=== PATIENT | female | born 1930 | race Caucasian/White ===

== ENCOUNTER 2019-08-24 04:49 | Inpatient (IN) | payer MEDICARE, MEDICAID ==
[~2019-08-24] VITALS: Ht 157.5 cm; Wt 45.5 kg
[~2019-08-24 04:49] MED LIST: ALEN70TA6 PO; AMLO10TA4 PO; ASPI-1265 PO; GABA-530 PO; HYDR-3972 PO; LIDO700A5 TOP; OMEP20CA15 PO; POTA20TA10 PO
[2019-08-24] MEDS ORDERED: SIMV10TA98 PO (05:02)
[2019-08-24] MEDS ORDERED: normal saline 1000ML IV soln IVB ONE (05:05)
[2019-08-24] MEDS ORDERED: tranexamic acid 100mg/ml inj. IV ONE (05:10)
[2019-08-24 05:12] LABS: BASOPHILS % (AUTO) 0.6 % (0-1); EOSINOPHILS # (AUTO) 0.1 X10'3 (0-0.9); HEMATOCRIT 39.1 % (35.0-45.0); HEMOGLOBIN 12.6 g/dl (12.0-16.0); LYMPHOCYTES # (AUTO) 2.3 X10'3 (1.1-4.8); LYMPHOCYTES % (AUTO) 34.7 % (21-51); MEAN CORPUSCULAR HEMOGLOBIN 27.9 PG (27.0-31.0); MEAN CORPUSCULAR HGB CONC 32.1 g/dL (33.0-36.5); MEAN CORPUSCULAR VOLUME 86.8 FL (78-98); MEAN PLATELET VOLUME 7.8 FL (7.4-10.4); MONOCYTES # (AUTO) 0.6 X10'3 (0-0.9); MONOCYTES % (AUTO) 8.4 % (2-12); NEUTROPHILS # (AUTO) 3.7 X10'3 (1.8-7.7); NEUTROPHILS % (AUTO) 55.3 % (42-75); PLATELET COUNT 222 X10'3 (140-440); RED BLOOD COUNT 4.51 X10'6 (4.20-5.60); RED CELL DISTRIBUTION WIDTH 14.3 % (11.5-14.5); WHITE BLOOD COUNT 6.7 X10'3 (4.5-11.0)
[2019-08-24] MEDS ORDERED: TRANEXAMIC ACID 1 GM IN NACL,ISO-OS 100 ML IV ONE (05:15)
--- NOTE | 2019-08-24 05:30 | NUR ---
Pt's son (Alaina) #: [id number]
[2019-08-24 05:31] LABS: ALANINE AMINOTRANSFERASE 23 U/L (12-78); ALBUMIN 4.1 G/DL (3.4-5.0); ALKALINE PHOSPHATASE 107 IU/L (46-116); ANION GAP 9 (8-16); ASPARTATE AMINO TRANSFERASE 17 U/L (10-37); BILIRUBIN,TOTAL 0.5 MG/DL (0.1-1.0); BLOOD UREA NITROGEN 13 MG/DL (7-18); CALCIUM 9.4 MG/DL (8.5-10.1); CHLORIDE 107 MMOL/L (99-107); CREATININE 0.81 MG/DL (0.40-0.90); GLUCOSE 105 MG/DL (70-104); LIPASE 92 U/L (73-393); POTASSIUM 3.5 MMOL/L (3.5-5.1); SODIUM 144 MMOL/L (135-145); TOTAL CARBON DIOXIDE 28.5 MMOL/L (24-32); TOTAL PROTEIN 8.1 G/DL (6.4-8.2); eGFR 67 ML/MIN
[2019-08-24 05:39] LABS: CLARITY,URINE CLEAR (Clear); COLOR,URINE YELLOW (Yellow); GLUCOSE, URINE NEGATIVE (Neg); KETONES,URINE NEGATIVE (Neg); LEUKOCYTE ESTERASE ,URINE NEGATIVE (Neg); NITRITES, URINE NEGATIVE (Neg); OCCULT BLOOD,URINE MODERATE (Neg); PH,URINE 7.5 (4.8-8.0); PROTEIN,URINE NEGATIVE (Neg); UROBILINOGEN,URINE 0.2 E.U/dL (0.2-1.0)
[2019-08-24 05:44] LABS: UA COLLECTION TYPE CLN CATCH MIDSTREAM
[2019-08-24 05:45] LABS: BACTERIA,URINE NONE SEEN /HPF (Neg); RBC,URINE 0-2 /HPF (0-2); SQUAMOUS EPITHELIAL CELL,UR NONE SEEN /LPF (FEW); WBC,URINE NONE SEEN /HPF (0-4)
--- NOTE | 2019-08-24 06:15 | NUR ---
Pt. assisted to the bathroom. Upon exiting, pt. states that she has blood with her stool again. made aware. Hospitalist to be consulted re this.
--- NOTE | 2019-08-24 06:45 | NUR ---
UPDATED PT ON ADMIT PROCESS, PT UP AMBULATING TO BR WITH HER CANE.
[2019-08-24] MEDS ORDERED: non-formulary drug (Omeprazole 1 CAP) PO SCH (08:00)
[2019-08-24] MEDS ORDERED: magnesium hydroxide 30ml (MOM) UD suspension PO PRN (08:05)
[2019-08-24] MEDS ORDERED: mag hydrox/Alum hydrox/simeth 30ml oral suspension PO PRN (08:05)
[2019-08-24] MEDS ORDERED: morphine 2 MG/ML inj. syringe IV PRN ×2 (08:05)
[2019-08-24] MEDS ORDERED: acetaminophen 325mg tablet PO PRN ×2 (08:05)
[2019-08-24] MEDS ORDERED: ondansetron/PF 4mg/2ml inj IV PRN (08:05)
[2019-08-24 08:30] LABS: PARTIAL THROMBOPLASTIN TIME 29 SECONDS (22-32)
--- NOTE | 2019-08-24 08:30 | NUR ---
Report received from ED RNLoraine.
[2019-08-24 09:00] VITALS: BP 149/68
[2019-08-24] MEDS: dextrose 5%-1/2 normal saline 1,000 ML IV SCH ×3 (09:09→19:58)
[2019-08-24] MEDS: gabapentin 100mg capsule PO SCH ×2 (09:09→19:35)
[2019-08-24] MEDS: HYDROcodone/acetaminophen 5mg/325mg tablet PO PRN ×2 (10:56→17:26)
[2019-08-24 11:14] LABS: BASOPHILS % (AUTO) 0.7 % (0-1); EOSINOPHILS % (AUTO) 0.3 % (0-6); HEMATOCRIT 34.9 % (35.0-45.0); HEMOGLOBIN 11.3 g/dl (12.0-16.0); LYMPHOCYTES # (AUTO) 1.6 X10'3 (1.1-4.8); LYMPHOCYTES % (AUTO) 22.8 % (21-51); MEAN CORPUSCULAR HEMOGLOBIN 28.2 PG (27.0-31.0); MEAN CORPUSCULAR HGB CONC 32.4 g/dL (33.0-36.5); MEAN CORPUSCULAR VOLUME 87.1 FL (78-98); MONOCYTES # (AUTO) 0.4 X10'3 (0-0.9); MONOCYTES % (AUTO) 5.3 % (2-12); NEUTROPHILS % (AUTO) 70.9 % (42-75); PLATELET COUNT 209 X10'3 (140-440); RED BLOOD COUNT 4.01 X10'6 (4.20-5.60); RED CELL DISTRIBUTION WIDTH 14.3 % (11.5-14.5)
[2019-08-24 12:00] VITALS: BP 135/61
[2019-08-24] MEDS ORDERED: ANTI1CAP2 PO (12:55)
[2019-08-24] MEDS ORDERED: MULT-85 PO (12:55)
[2019-08-24] MEDS ORDERED: OMEG-133 PO (12:55)
[2019-08-24] MEDS ORDERED: nitroGLYCERIN 0.4mg SUBLingual tab SL PRN (16:25)
--- NOTE | 2019-08-24 18:10 | NUR ---
Patient in room [facility] 354. I have received report from SAMEER Noriega and had the opportunity to ask questions and assume patient care.
--- NOTE | 2019-08-24 18:30 | NUR ---
Problems reprioritized. Patient report given, questions answered & plan of care reviewed with SAMEER Lang.
[2019-08-24 19:27] LABS: BASOPHILS % (AUTO) 0.5 % (0-1); EOSINOPHILS % (AUTO) 0.3 % (0-6); HEMATOCRIT 30.7 % (35.0-45.0); HEMOGLOBIN 9.9 g/dl (12.0-16.0); LYMPHOCYTES # (AUTO) 1.3 X10'3 (1.1-4.8); LYMPHOCYTES % (AUTO) 21.3 % (21-51); MEAN CORPUSCULAR HEMOGLOBIN 28.5 PG (27.0-31.0); MEAN CORPUSCULAR HGB CONC 32.3 g/dL (33.0-36.5); MEAN PLATELET VOLUME 8.1 FL (7.4-10.4); MONOCYTES # (AUTO) 0.2 X10'3 (0-0.9); MONOCYTES % (AUTO) 3.7 % (2-12); NEUTROPHILS # (AUTO) 4.5 X10'3 (1.8-7.7); NEUTROPHILS % (AUTO) 74.2 % (42-75); PLATELET COUNT 186 X10'3 (140-440); RED BLOOD COUNT 3.48 X10'6 (4.20-5.60); RED CELL DISTRIBUTION WIDTH 14.3 % (11.5-14.5); WHITE BLOOD COUNT 6.1 X10'3 (4.5-11.0)
[2019-08-24 20:00] VITALS: BP_SYST 123; BP_SYST 131; BP_SYST 136; BP_DIAS 64; BP_DIAS 68; BP_DIAS 77
[2019-08-24 20:16] VITALS: BP 136/64
[2019-08-24 23:56] VITALS: BP 112/53
--- NOTE | 2019-08-25 06:36 | NUR ---
Problems reprioritized. Patient report given, questions answered & plan of care reviewed with SAMEER Viramontes.
[2019-08-25 06:37] LABS: BASOPHILS % (AUTO) 0.6 % (0-1); EOSINOPHILS % (AUTO) 0.6 % (0-6); HEMATOCRIT 31.6 % (35.0-45.0); HEMOGLOBIN 10.2 g/dl (12.0-16.0); LYMPHOCYTES # (AUTO) 1.9 X10'3 (1.1-4.8); LYMPHOCYTES % (AUTO) 31.5 % (21-51); MEAN CORPUSCULAR HEMOGLOBIN 28.1 PG (27.0-31.0); MEAN CORPUSCULAR HGB CONC 32.3 g/dL (33.0-36.5); MEAN CORPUSCULAR VOLUME 86.8 FL (78-98); MEAN PLATELET VOLUME 7.8 FL (7.4-10.4); MONOCYTES # (AUTO) 0.4 X10'3 (0-0.9); MONOCYTES % (AUTO) 7.4 % (2-12); NEUTROPHILS # (AUTO) 3.7 X10'3 (1.8-7.7); NEUTROPHILS % (AUTO) 59.9 % (42-75); PLATELET COUNT 203 X10'3 (140-440); RED BLOOD COUNT 3.65 X10'6 (4.20-5.60); RED CELL DISTRIBUTION WIDTH 14.4 % (11.5-14.5); WHITE BLOOD COUNT 6.1 X10'3 (4.5-11.0)
[2019-08-25 06:42] LABS: ALBUMIN 3.6 G/DL (3.4-5.0); ANION GAP 8 (8-16); BLOOD UREA NITROGEN 3 MG/DL (7-18); BUN/CREATININE RATIO 3.7 (6.6-38.0); CALCIUM 8.9 MG/DL (8.5-10.1); CHLORIDE 109 MMOL/L (99-107); CREATININE 0.82 MG/DL (0.40-0.90); GLUCOSE 120 MG/DL (70-104); POTASSIUM 3.1 MMOL/L (3.5-5.1); SODIUM 144 MMOL/L (135-145); TOTAL CARBON DIOXIDE 26.6 MMOL/L (24-32); eGFR 66 ML/MIN
--- NOTE | 2019-08-25 07:04 | NUR ---
Patient in room [facility] 354. I have received report from Rickey ESTRELLA and had the opportunity to ask questions and assume patient care.
[2019-08-25 07:24] VITALS: BP 118/73
[2019-08-25] MEDS: HYDROcodone/acetaminophen 5mg/325mg tablet PO PRN ×2 (07:53→17:59)
[2019-08-25] MEDS: gabapentin 100mg capsule PO SCH ×2 (07:55→19:38)
[2019-08-25] MEDS: pantoprazole 40mg Tablet.DR PO SCH (07:57)
[2019-08-25] MEDS: atorvastatin 10mg tablet PO SCH (08:03)
[2019-08-25] MEDS ORDERED: potassium Cl 20 mEq SR tablet PO ONE (09:00)
[2019-08-25 11:21] VITALS: BP_SYST 110; BP_SYST 122; BP_SYST 140; BP_DIAS 63; BP_DIAS 65; BP_DIAS 71
[2019-08-25 11:41] LABS: BASOPHILS % (AUTO) 0.5 % (0-1); EOSINOPHILS % (AUTO) 0.1 % (0-6); HEMOGLOBIN 10.3 g/dl (12.0-16.0); LYMPHOCYTES # (AUTO) 1.6 X10'3 (1.1-4.8); LYMPHOCYTES % (AUTO) 23.5 % (21-51); MEAN CORPUSCULAR HEMOGLOBIN 28.2 PG (27.0-31.0); MEAN CORPUSCULAR HGB CONC 32.4 g/dL (33.0-36.5); MEAN CORPUSCULAR VOLUME 87.3 FL (78-98); MONOCYTES # (AUTO) 0.5 X10'3 (0-0.9); MONOCYTES % (AUTO) 7.3 % (2-12); NEUTROPHILS # (AUTO) 4.7 X10'3 (1.8-7.7); NEUTROPHILS % (AUTO) 68.6 % (42-75); PLATELET COUNT 197 X10'3 (140-440); RED BLOOD COUNT 3.66 X10'6 (4.20-5.60); RED CELL DISTRIBUTION WIDTH 14.4 % (11.5-14.5); WHITE BLOOD COUNT 6.8 X10'3 (4.5-11.0)
[2019-08-25 12:27] VITALS: BP 121/65
--- NOTE | 2019-08-25 15:13 | NUR ---
paged regarding addressing med rec. Awaiting call back.
--- NOTE | 2019-08-25 17:24 | NUR ---
paged regarding positive orthostatic and HR in 110s. Awaiting call back.
--- NOTE | 2019-08-25 18:31 | NUR ---
Problems reprioritized. Patient report given, questions answered & plan of care reviewed with Rickey ESTRELLA.
--- NOTE | 2019-08-25 18:52 | NUR ---
I have received report from SAMEER Viramontes and had the opportunity to ask questions and assume patient care.
[2019-08-25 19:19] LABS: BASOPHILS % (AUTO) 0.5 % (0-1); EOSINOPHILS % (AUTO) 0.4 % (0-6); HEMATOCRIT 31.3 % (35.0-45.0); HEMOGLOBIN 10.2 g/dl (12.0-16.0); LYMPHOCYTES % (AUTO) 28.3 % (21-51); MEAN CORPUSCULAR HEMOGLOBIN 28.3 PG (27.0-31.0); MEAN CORPUSCULAR HGB CONC 32.6 g/dL (33.0-36.5); MEAN PLATELET VOLUME 8.2 FL (7.4-10.4); MONOCYTES # (AUTO) 0.5 X10'3 (0-0.9); MONOCYTES % (AUTO) 7.4 % (2-12); NEUTROPHILS # (AUTO) 4.5 X10'3 (1.8-7.7); NEUTROPHILS % (AUTO) 63.4 % (42-75); PLATELET COUNT 219 X10'3 (140-440); RED BLOOD COUNT 3.59 X10'6 (4.20-5.60); RED CELL DISTRIBUTION WIDTH 14.2 % (11.5-14.5); WHITE BLOOD COUNT 7.1 X10'3 (4.5-11.0)
[2019-08-25 20:00] VITALS: BP_SYST 140; BP_SYST 142; BP_SYST 146; BP_DIAS 63; BP_DIAS 76
[2019-08-25] MEDS: LIDOcaine 5% patch TP SCH (20:41)
[2019-08-26 05:54] LABS: BASOPHILS % (AUTO) 0.5 % (0-1); EOSINOPHILS # (AUTO) 0.1 X10'3 (0-0.9); EOSINOPHILS % (AUTO) 0.9 % (0-6); HEMATOCRIT 26.6 % (35.0-45.0); HEMOGLOBIN 8.7 g/dl (12.0-16.0); LYMPHOCYTES # (AUTO) 2.2 X10'3 (1.1-4.8); LYMPHOCYTES % (AUTO) 36.4 % (21-51); MEAN CORPUSCULAR HEMOGLOBIN 28.5 PG (27.0-31.0); MEAN CORPUSCULAR HGB CONC 32.5 g/dL (33.0-36.5); MEAN CORPUSCULAR VOLUME 87.6 FL (78-98); MONOCYTES # (AUTO) 0.6 X10'3 (0-0.9); MONOCYTES % (AUTO) 10.7 % (2-12); NEUTROPHILS # (AUTO) 3.1 X10'3 (1.8-7.7); NEUTROPHILS % (AUTO) 51.5 % (42-75); PLATELET COUNT 175 X10'3 (140-440); RED BLOOD COUNT 3.04 X10'6 (4.20-5.60); RED CELL DISTRIBUTION WIDTH 14.4 % (11.5-14.5)
[2019-08-26 06:01] LABS: ALBUMIN 3.1 G/DL (3.4-5.0); ANION GAP 6 (8-16); BLOOD UREA NITROGEN 9 MG/DL (7-18); CALCIUM 8.5 MG/DL (8.5-10.1); CHLORIDE 110 MMOL/L (99-107); GLUCOSE 99 MG/DL (70-104); POTASSIUM 3.1 MMOL/L (3.5-5.1); SODIUM 145 MMOL/L (135-145); TOTAL CARBON DIOXIDE 28.9 MMOL/L (24-32); eGFR 59 ML/MIN
--- NOTE | 2019-08-26 06:30 | NUR ---
Problems reprioritized. Patient report given, questions answered & plan of care reviewed with SAMEER Viramontes.
[2019-08-26 06:31] VITALS: BP 111/55
--- NOTE | 2019-08-26 06:58 | NUR ---
Patient in room [facility] 354. I have received report from Rickey ESTRELLA and had the opportunity to ask questions and assume patient care.
[2019-08-26 07:31] VITALS: BP 127/69
[2019-08-26] MEDS: gabapentin 100mg capsule PO SCH ×2 (08:02→19:28)
[2019-08-26] MEDS: pantoprazole 40mg Tablet.DR PO SCH (08:02)
[2019-08-26] MEDS: atorvastatin 10mg tablet PO SCH (08:02)
[2019-08-26] MEDS: HYDROcodone/acetaminophen 5mg/325mg tablet PO PRN ×2 (08:07→21:42)
[2019-08-26] MEDS ORDERED: potassium Cl 20 mEq SR tablet PO ONE (08:55)
[2019-08-26 11:41] VITALS: BP 102/48
[2019-08-26 11:48] VITALS: BP_SYST 103; BP_SYST 106; BP_SYST 107; BP_DIAS 55; BP_DIAS 57; BP_DIAS 63
[2019-08-26 12:24] LABS: BASOPHILS % (AUTO) 0.3 % (0-1); EOSINOPHILS % (AUTO) 0.2 % (0-6); HEMATOCRIT 26.8 % (35.0-45.0); HEMOGLOBIN 8.6 g/dl (12.0-16.0); LYMPHOCYTES # (AUTO) 1.8 X10'3 (1.1-4.8); LYMPHOCYTES % (AUTO) 25.1 % (21-51); MEAN CORPUSCULAR HGB CONC 32.3 g/dL (33.0-36.5); MEAN CORPUSCULAR VOLUME 86.7 FL (78-98); MEAN PLATELET VOLUME 8.2 FL (7.4-10.4); MONOCYTES # (AUTO) 0.5 X10'3 (0-0.9); MONOCYTES % (AUTO) 6.6 % (2-12); NEUTROPHILS # (AUTO) 4.9 X10'3 (1.8-7.7); NEUTROPHILS % (AUTO) 67.8 % (42-75); PLATELET COUNT 180 X10'3 (140-440); RED BLOOD COUNT 3.09 X10'6 (4.20-5.60); RED CELL DISTRIBUTION WIDTH 14.3 % (11.5-14.5); WHITE BLOOD COUNT 7.2 X10'3 (4.5-11.0)
--- NOTE | 2019-08-26 12:40 | NUR ---
Dr. Peacock paged regarding current H&H of 8.6.8. Awaiting callback.
--- NOTE | 2019-08-26 18:24 | NUR ---
Problems reprioritized. Patient report given, questions answered & plan of care reviewed with Rickey ESTRELLA.
--- NOTE | 2019-08-26 19:09 | NUR ---
Patient in room [facility] 354. I have received report from SAMEER Viramontes and had the opportunity to ask questions and assume patient care.
[2019-08-26 19:15] LABS: BASOPHILS % (AUTO) 0.5 % (0-1); EOSINOPHILS # (AUTO) 0.1 X10'3 (0-0.9); EOSINOPHILS % (AUTO) 0.8 % (0-6); HEMATOCRIT 28.2 % (35.0-45.0); HEMOGLOBIN 9.1 g/dl (12.0-16.0); LYMPHOCYTES # (AUTO) 2.6 X10'3 (1.1-4.8); LYMPHOCYTES % (AUTO) 35.5 % (21-51); MEAN CORPUSCULAR HEMOGLOBIN 28.5 PG (27.0-31.0); MEAN CORPUSCULAR HGB CONC 32.4 g/dL (33.0-36.5); MEAN CORPUSCULAR VOLUME 87.9 FL (78-98); MEAN PLATELET VOLUME 8.2 FL (7.4-10.4); MONOCYTES # (AUTO) 0.6 X10'3 (0-0.9); MONOCYTES % (AUTO) 7.6 % (2-12); NEUTROPHILS # (AUTO) 4.1 X10'3 (1.8-7.7); NEUTROPHILS % (AUTO) 55.6 % (42-75); PLATELET COUNT 205 X10'3 (140-440); RED BLOOD COUNT 3.21 X10'6 (4.20-5.60); RED CELL DISTRIBUTION WIDTH 14.5 % (11.5-14.5); WHITE BLOOD COUNT 7.3 X10'3 (4.5-11.0)
[2019-08-26] MEDS: LIDOcaine 5% patch TP SCH (19:28)
[2019-08-26 20:00] VITALS: BP_SYST 133; BP_SYST 135; BP_SYST 147; BP_DIAS 67; BP_DIAS 71
[2019-08-27] VITALS: BP 135/71
[2019-08-27 06:09] LABS: BASOPHILS % (AUTO) 0.4 % (0-1); EOSINOPHILS # (AUTO) 0.1 X10'3 (0-0.9); EOSINOPHILS % (AUTO) 1.1 % (0-6); HEMATOCRIT 23.8 % (35.0-45.0); HEMOGLOBIN 7.9 g/dl (12.0-16.0); LYMPHOCYTES # (AUTO) 2.8 X10'3 (1.1-4.8); LYMPHOCYTES % (AUTO) 42.7 % (21-51); MEAN CORPUSCULAR HEMOGLOBIN 28.5 PG (27.0-31.0); MEAN CORPUSCULAR HGB CONC 33.1 g/dL (33.0-36.5); MEAN CORPUSCULAR VOLUME 86.1 FL (78-98); MEAN PLATELET VOLUME 8.3 FL (7.4-10.4); MONOCYTES # (AUTO) 0.5 X10'3 (0-0.9); MONOCYTES % (AUTO) 8.2 % (2-12); NEUTROPHILS # (AUTO) 3.1 X10'3 (1.8-7.7); NEUTROPHILS % (AUTO) 47.6 % (42-75); PLATELET COUNT 180 X10'3 (140-440); RED BLOOD COUNT 2.76 X10'6 (4.20-5.60); RED CELL DISTRIBUTION WIDTH 13.9 % (11.5-14.5); WHITE BLOOD COUNT 6.5 X10'3 (4.5-11.0)
[2019-08-27 06:17] LABS: ALBUMIN 2.9 G/DL (3.4-5.0); ANION GAP 9 (8-16); BLOOD UREA NITROGEN 11 MG/DL (7-18); BUN/CREATININE RATIO 13.6 (6.6-38.0); CALCIUM 8.8 MG/DL (8.5-10.1); CHLORIDE 108 MMOL/L (99-107); CREATININE 0.81 MG/DL (0.40-0.90); GLUCOSE 89 MG/DL (70-104); POTASSIUM 3.2 MMOL/L (3.5-5.1); SODIUM 143 MMOL/L (135-145); TOTAL CARBON DIOXIDE 26.1 MMOL/L (24-32); eGFR 67 ML/MIN
--- NOTE | 2019-08-27 06:34 | NUR ---
Problems reprioritized. Patient report given, questions answered & plan of care reviewed with SAMEER Alexander.
--- NOTE | 2019-08-27 06:35 | NUR ---
Patient in room [facility] 354. I have received report from SAMEER WALLACE and had the opportunity to ask questions and assume patient care.
[2019-08-27 07:00] VITALS: BP 128/62
[2019-08-27] MEDS: pantoprazole 40mg Tablet.DR PO SCH (07:42)
[2019-08-27] MEDS: atorvastatin 10mg tablet PO SCH (07:42)
[2019-08-27] MEDS: gabapentin 100mg capsule PO SCH (07:42)
[2019-08-27] MEDS: HYDROcodone/acetaminophen 5mg/325mg tablet PO PRN ×2 (07:43→13:02)
[2019-08-27 11:00] VITALS: BP 122/57
[2019-08-27 12:05] LABS: BASOPHILS % (AUTO) 0.4 % (0-1); EOSINOPHILS % (AUTO) 0.4 % (0-6); HEMATOCRIT 26.4 % (35.0-45.0); HEMOGLOBIN 8.7 g/dl (12.0-16.0); LYMPHOCYTES # (AUTO) 2.1 X10'3 (1.1-4.8); LYMPHOCYTES % (AUTO) 30.9 % (21-51); MEAN CORPUSCULAR HEMOGLOBIN 28.5 PG (27.0-31.0); MEAN CORPUSCULAR HGB CONC 32.8 g/dL (33.0-36.5); MEAN CORPUSCULAR VOLUME 86.8 FL (78-98); MEAN PLATELET VOLUME 8.3 FL (7.4-10.4); MONOCYTES # (AUTO) 0.5 X10'3 (0-0.9); NEUTROPHILS # (AUTO) 4.2 X10'3 (1.8-7.7); NEUTROPHILS % (AUTO) 61.3 % (42-75); PLATELET COUNT 209 X10'3 (140-440); RED BLOOD COUNT 3.04 X10'6 (4.20-5.60); RED CELL DISTRIBUTION WIDTH 14.6 % (11.5-14.5); WHITE BLOOD COUNT 6.8 X10'3 (4.5-11.0)
--- NOTE | 2019-08-27 16:15 | NUR ---
PATIENT APPROPRIATE AND STABLE FOR DISCHARGE, IV TAKEN OUT, EDUCATION GIVEN, ALL BELONGINGS SENT WITH PATIENT, TAKEN TO LOBBY IN WHEEL CHAIR TO AN AWAITING CAR WHERE WILL TAKE PATIENT HOME
== END 2019-08-27 16:15 | disposition home or self-care (01) | DRG 378 ==
LOC: ER 04:49 → ED HOLD 08:01 → SUR 3N 08:56
PROVIDERS: ADMIT Internal Medicine; ATTEND Internal Medicine
DX: K57.31 Diverticulosis of large intestine without perforation or abscess with bleeding (principal); D62 Acute posthemorrhagic anemia; E87.6 Hypokalemia; E78.5 Hyperlipidemia, unspecified; F03.90 Unspecified dementia, unspecified severity, without behavioral disturbance, psychotic disturbance, mood disturbance, and anxiety; I10 Essential (primary) hypertension; R03.0 Elevated blood-pressure reading, without diagnosis of hypertension; M54.9 Dorsalgia, unspecified; Z87.11 Personal history of peptic ulcer disease; Z88.0 Allergy status to penicillin; Z88.1 Allergy status to other antibiotic agents; Z79.899 Other long term (current) drug therapy; Z88.8 Allergy status to other drugs, medicaments and biological substances
CPT/HCPCS: 36415; 74176; 80048; 80053; 81001; 83690; 83880; 85025; 85610; 85730; 86885; 86900; 86901; 87081; 93005; 96365; 99285; G0378; J7030

== ENCOUNTER 2020-01-07 13:11 | Emergency (ER) | payer MEDICARE, OTHER ==
[~2020-01-07] VITALS: Ht 157.5 cm; Wt 46.3 kg
[~2020-01-07 13:11] MED LIST changes: -ALEN70TA6 PO; +ALEN70TA69 PO; +ANTI1CAP2 PO; -ASPI-1265 PO; +MULT-85 PO; +OMEG-133 PO; +SIMV10TA98 PO
[2020-01-07] MEDS ORDERED: potassium Cl 20 mEq SR tablet PO STA ×2 (14:51→16:44)
[2020-01-07] MEDS ORDERED: normal saline 1000ML IV soln IVB ONE (14:55)
[2020-01-07 15:27] LABS: BASOPHILS % (AUTO) 0.5 % (0-1); EOSINOPHILS # (AUTO) 0.1 X10'3 (0-0.9); EOSINOPHILS % (AUTO) 1.3 % (0-6); HEMATOCRIT 37.3 % (35.0-45.0); HEMOGLOBIN 12.3 g/dl (12.0-16.0); LYMPHOCYTES # (AUTO) 2.1 X10'3 (1.1-4.8); LYMPHOCYTES % (AUTO) 35.9 % (21-51); MEAN CORPUSCULAR HEMOGLOBIN 28.2 PG (27.0-31.0); MEAN CORPUSCULAR VOLUME 85.5 FL (78-98); MEAN PLATELET VOLUME 8.2 FL (7.4-10.4); MONOCYTES # (AUTO) 0.6 X10'3 (0-0.9); MONOCYTES % (AUTO) 10.8 % (2-12); NEUTROPHILS % (AUTO) 51.5 % (42-75); PLATELET COUNT 199 X10'3 (140-440); RED BLOOD COUNT 4.37 X10'6 (4.20-5.60); RED CELL DISTRIBUTION WIDTH 15.3 % (11.5-14.5); WHITE BLOOD COUNT 5.9 X10'3 (4.5-11.0)
[2020-01-07 15:49] LABS: ALANINE AMINOTRANSFERASE 20 U/L (12-78); ALKALINE PHOSPHATASE 108 IU/L (46-116); ANION GAP 11 (8-16); ASPARTATE AMINO TRANSFERASE 18 U/L (10-37); BILIRUBIN,TOTAL 0.4 MG/DL (0.1-1.0); BLOOD UREA NITROGEN 19 MG/DL (7-18); BUN/CREATININE RATIO 23.2 (6.6-38.0); CALCIUM 9.5 MG/DL (8.5-10.1); CHLORIDE 102 MMOL/L (99-107); CREATININE 0.82 MG/DL (0.40-0.90); GLUCOSE 113 MG/DL (70-104); SODIUM 142 MMOL/L (135-145); TOTAL CARBON DIOXIDE 29.1 MMOL/L (24-32); eGFR 66 ML/MIN
[2020-01-07 17:03] VITALS: BP 128/94
== END 2020-01-07 17:04 | disposition home or self-care (01) ==
LOC: ER 13:11
DX: R53.1 Weakness (principal); F03.90 Unspecified dementia, unspecified severity, without behavioral disturbance, psychotic disturbance, mood disturbance, and anxiety; E87.6 Hypokalemia; R26.89 Other abnormalities of gait and mobility; I10 Essential (primary) hypertension; Z98.890 Other specified postprocedural states; Z88.0 Allergy status to penicillin; Z88.5 Allergy status to narcotic agent; Z88.8 Allergy status to other drugs, medicaments and biological substances; Z79.899 Other long term (current) drug therapy
CPT/HCPCS: 36415; 70450; 80053; 84484; 85025; 93005; 99285

== ENCOUNTER 2020-04-08 05:54 | Inpatient (IN) | payer MEDICARE, MEDICAID ==
[~2020-04-08] VITALS: Ht 154.9 cm; Wt 44.5 kg
[~2020-04-08 05:54] MED LIST changes: -ALEN70TA69 PO; +ALEN70TA81 PO
[2020-04-08] MEDS ORDERED: pantoprazole 40 MG vial IV ONE (06:20)
[2020-04-08] MEDS ORDERED: famotidine/PF 10 mg/ml inj IV ONE (06:20)
[2020-04-08 06:29] LABS: BASOPHILS % (AUTO) 0.7 % (0-1); EOSINOPHILS % (AUTO) 0.8 % (0-6); HEMATOCRIT 27.4 % (35.0-45.0); HEMOGLOBIN 9.1 g/dl (12.0-16.0); LYMPHOCYTES # (AUTO) 1.4 X10'3 (1.1-4.8); LYMPHOCYTES % (AUTO) 28.1 % (21-51); MEAN CORPUSCULAR HEMOGLOBIN 29.8 PG (27.0-31.0); MEAN CORPUSCULAR VOLUME 90.1 FL (78-98); MEAN PLATELET VOLUME 7.9 FL (7.4-10.4); MONOCYTES # (AUTO) 0.5 X10'3 (0-0.9); MONOCYTES % (AUTO) 8.9 % (2-12); NEUTROPHILS # (AUTO) 3.1 X10'3 (1.8-7.7); NEUTROPHILS % (AUTO) 61.5 % (42-75); PLATELET COUNT 252 X10'3 (140-440); RED BLOOD COUNT 3.04 X10'6 (4.20-5.60); RED CELL DISTRIBUTION WIDTH 13.7 % (11.5-14.5); WHITE BLOOD COUNT 5.1 X10'3 (4.5-11.0)
[2020-04-08 06:39] LABS: PARTIAL THROMBOPLASTIN TIME 22 SECONDS (22-32)
[2020-04-08 06:46] LABS: ALANINE AMINOTRANSFERASE 19 U/L (12-78); ALBUMIN/GLOBULIN RATIO 1.1 (1.1-1.5); ALKALINE PHOSPHATASE 69 IU/L (46-116); ANION GAP 9 (8-16); ASPARTATE AMINO TRANSFERASE 22 U/L (10-37); BILIRUBIN,TOTAL 0.3 MG/DL (0.1-1.0); BLOOD UREA NITROGEN 18 MG/DL (7-18); BUN/CREATININE RATIO 19.8 (6.6-38.0); CALCIUM 9.1 MG/DL (8.5-10.1); CHLORIDE 106 MMOL/L (99-107); CREATININE 0.91 MG/DL (0.40-0.90); GLUCOSE 113 MG/DL (70-104); POTASSIUM 3.5 MMOL/L (3.5-5.1); SODIUM 143 MMOL/L (135-145); TOTAL CARBON DIOXIDE 27.7 MMOL/L (24-32); TOTAL PROTEIN 7.5 G/DL (6.4-8.2); eGFR 58 ML/MIN
[2020-04-08] MEDS ORDERED: FERR325T28 PO (07:23)
[2020-04-08] MEDS ORDERED: ASPI-1265 PO (07:23)
[2020-04-08] MEDS ORDERED: mag hydrox/Alum hydrox/simeth 30ml oral suspension PO PRN (09:15)
[2020-04-08] MEDS ORDERED: acetaminophen 325mg tablet PO PRN ×2 (09:15)
[2020-04-08] MEDS ORDERED: HYDROmorphone inj. 0.5 MG/0.5 ML DISP.SYRIN IV PRN (09:15)
[2020-04-08] MEDS ORDERED: magnesium Cl slow-release 64mg tablet PO PRN (09:15)
[2020-04-08] MEDS ORDERED: HYDROcodone/acetaminophen 5mg/325mg tablet PO PRN (09:15)
[2020-04-08] MEDS ORDERED: magnesium hydroxide 30ml (MOM) UD suspension PO PRN (09:15)
[2020-04-08] MEDS ORDERED: PEG 3350/Na sulf,bicarb,Cl/KCl oral sol 4 liter bottle PO ONE ×2 (09:15→17:05)
[2020-04-08] MEDS ORDERED: magnesium 2GM in 50ml NS 50 ML IV PRN (09:15)
[2020-04-08] MEDS ORDERED: magnesium 4gm in 100ml NS 100 ML IV PRN (09:15)
[2020-04-08] MEDS ORDERED: potassium Cl 40MEQ/1/2NS 520ml 520 ML IV PRN ×2 (09:15)
[2020-04-08] MEDS ORDERED: magnesium hydroxide 30ml (MOM) UD suspension PO ONE (09:15)
[2020-04-08] MEDS ORDERED: ondansetron/PF 4mg/2ml inj IV PRN (09:15)
[2020-04-08] MEDS ORDERED: potassium Cl 20 mEq SR tablet PO PRN (09:15)
[2020-04-08 09:41] LABS: OCCULT BLOOD STOOL POSITIVE (Neg)
[2020-04-08] MEDS: normal saline 1000ml 1,000 ML IV SCH ×2 (10:29→17:31)
[2020-04-08] MEDS ORDERED: pantoprazole 40MG/NS 100ML BAG 100 ML IV SCH (11:00)
[2020-04-08] MEDS: HYDROcodone/acetaminophen 10/325mg tab PO PRN (11:12)
[2020-04-08 11:44] LABS: COLOR,URINE YELLOW (Yellow); GLUCOSE, URINE NEGATIVE (Neg); KETONES,URINE NEGATIVE (Neg); LEUKOCYTE ESTERASE ,URINE NEGATIVE (Neg); NITRITES, URINE NEGATIVE (Neg); OCCULT BLOOD,URINE MODERATE (Neg); PROTEIN,URINE NEGATIVE (Neg); UROBILINOGEN,URINE 0.2 E.U/dL (0.2-1.0)
[2020-04-08 11:51] LABS: CLARITY,URINE SLIGHTLY CLOUDY (Clear); UA COLLECTION TYPE CLN CATCH MIDSTREAM
[2020-04-08 11:55] LABS: MUCUS STRANDS MODERATE /LPF (Neg); SQUAMOUS EPITHELIAL CELL,UR FEW /LPF (FEW)
[2020-04-08 11:56] LABS: TRANSITIONAL EPI CELLS,URINE FEW /HPF
[2020-04-08 11:59] LABS: BACTERIA,URINE FEW /HPF (Neg); RBC,URINE 0-2 /HPF (0-2)
[2020-04-08 12:00] LABS: WBC,URINE 0-4 /HPF (0-4)
[2020-04-08 12:18] VITALS: BP 127/64
[2020-04-08 12:42] VITALS: BP 136/64
--- NOTE | 2020-04-08 14:00 | NUR ---
Patient in room ED 11. I have received report from Denver ESTRELLA and had the opportunity to ask questions and assume patient care. Nurse was not the primary nurse and only noted what was on screen. Will continue to monitor.
[2020-04-08 14:46] VITALS: BP 121/62
--- NOTE | 2020-04-08 14:46 | NUR ---
Patient transferred via gurney. Patient was hooked up to tele and blood transfusion completed. 2 RN skin checked complete and mrsa. VSS. Will continue to monitor.
[2020-04-08 15:00] VITALS: BP 121/62
--- NOTE | 2020-04-08 16:36 | NUR ---
Paged [facility] PAGER ID: [phone] MESSAGE: Re: Alexis Doty RM [id number]. Pt is NPO may she eat? and if so what diet? Thank you Dina ESTRELLA [phone]
--- NOTE | 2020-04-08 16:59 | NUR ---
Dr. Masters called regarding patient. New orderes no scoping in am, keep patient on clear liquids no reds, start the Golytely and MOM now and have patient start to be cleaned out. Patient had a colonoscopy September 2019. Stop All antibiotics. Will continue to monitor,
[2020-04-08 17:31] LABS: HEMOGLOBIN 10.4 g/dl (12.0-16.0); MEAN CORPUSCULAR HEMOGLOBIN 29.2 PG (27.0-31.0); MEAN CORPUSCULAR HGB CONC 32.5 g/dL (33.0-36.5); MEAN CORPUSCULAR VOLUME 90.1 FL (78-98); MEAN PLATELET VOLUME 7.9 FL (7.4-10.4); PLATELET COUNT 245 X10'3 (140-440); RED BLOOD COUNT 3.56 X10'6 (4.20-5.60); RED CELL DISTRIBUTION WIDTH 13.8 % (11.5-14.5)
--- NOTE | 2020-04-08 17:46 | NUR ---
Paged Dr. Masters promotional table spacer PAGER ID: [phone] MESSAGE: Re: Jay Doty RM [phone]. Are we still wanting Nuc GI bleed test. Please advise Dina ESTRELLA [phone]
--- NOTE | 2020-04-08 17:49 | NUR ---
Sent Pharmacy a message Please send pts Golytely for patient to sip per MD orders. Thank you
[2020-04-08 18:00] VITALS: BP 141/67
--- NOTE | 2020-04-08 18:42 | NUR ---
Problems reprioritized. Patient report given, questions answered & plan of care reviewed with Jazmin ESTRELLA.
[2020-04-08] MEDS: K and/or MAG REPLACEMENT MC SCH (20:00)
[2020-04-08] MEDS ORDERED: ciprofloxacin lact 400MG/200ML 200 ML IV SCH (20:00)
[2020-04-08] MEDS: gabapentin 100mg capsule PO SCH (21:50)
[2020-04-08 22:00] VITALS: BP 127/67
[2020-04-09] VITALS (12 sets, daily range): BP systolic 101–145; BP diastolic 51–73
[2020-04-09] MEDS ORDERED: metroNIDAZOLE-Flagyl 500mg/NS 100 ML IV SCH
[2020-04-09 06:11] LABS: HEMATOCRIT 29.1 % (35.0-45.0); HEMOGLOBIN 9.7 g/dl (12.0-16.0); MEAN CORPUSCULAR HEMOGLOBIN 29.7 PG (27.0-31.0); MEAN CORPUSCULAR HGB CONC 33.5 g/dL (33.0-36.5); MEAN CORPUSCULAR VOLUME 88.6 FL (78-98); PLATELET COUNT 223 X10'3 (140-440); RED BLOOD COUNT 3.29 X10'6 (4.20-5.60); RED CELL DISTRIBUTION WIDTH 13.9 % (11.5-14.5); WHITE BLOOD COUNT 5.6 X10'3 (4.5-11.0)
[2020-04-09 06:29] LABS: ALBUMIN 3.6 G/DL (3.4-5.0); ANION GAP 12 (8-16); BLOOD UREA NITROGEN 16 MG/DL (7-18); BUN/CREATININE RATIO 22.9 (6.6-38.0); CALCIUM 8.6 MG/DL (8.5-10.1); CHLORIDE 108 MMOL/L (99-107); GLUCOSE 87 MG/DL (70-104); MAGNESIUM 2.7 MG/DL (1.5-2.4); POTASSIUM 3.2 MMOL/L (3.5-5.1); SODIUM 145 MMOL/L (135-145); TOTAL CARBON DIOXIDE 24.9 MMOL/L (24-32); eGFR 79 ML/MIN
[2020-04-09] MEDS: HYDROcodone/acetaminophen 10/325mg tab PO PRN (06:36)
--- NOTE | 2020-04-09 06:46 | NUR ---
Problems reprioritized. Patient report given, questions answered & plan of care reviewed with morning nurse.
[2020-04-09] MEDS ORDERED: pantoprazole 40 MG vial IV SCH (08:00)
[2020-04-09] MEDS: amLODIPine 5mg tablet PO SCH (08:25)
[2020-04-09] MEDS: potassium Cl 20 mEq SR tablet PO PRN ×3 (08:26→22:29)
[2020-04-09] MEDS: gabapentin 100mg capsule PO SCH ×2 (08:26→19:45)
[2020-04-09] MEDS: K and/or MAG REPLACEMENT MC SCH ×2 (08:26→19:54)
--- NOTE | 2020-04-09 10:57 | NUR ---
Pt. made aware that she is NPO now. SHe is not happy about it. Discussed plans for an EGD later- GI RN states scheduled for around noon.
[2020-04-09] MEDS: pantoprazole 40MG/NS 100ML BAG 100 ML IV SCH ×2 (11:55→19:45)
--- NOTE | 2020-04-09 11:55 | NUR ---
GI LAB HERE TO GET PT. FOR EGD DOWNSTAIRS
[2020-04-09] MEDS: LIDOcaine 5% patch TP SCH (12:00)
[2020-04-09] MEDS ORDERED: MIDAZolam 5mg/5ml vial ONE (12:07)
[2020-04-09] MEDS ORDERED: fentaNYL/PF 50MCG/1 ML 2ML syringe ONE (12:07)
[2020-04-09] MEDS ORDERED: LIDOcaine Viscous 15ml cup ONE (12:07)
[2020-04-09] MEDS: normal saline 1000ml 1,000 ML IV SCH (13:51)
--- NOTE | 2020-04-09 14:26 | NUR ---
Patient back in room from GI Lab. Patient tolerating well. Tele applied, patient in good spirits. Two Fentanyl and one versed given down in GI Lab. Patient awake and alert A/O X4. 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 No Bleeding noted. Reports being sent to MD Dr. Masters, Will continue to monitor and keep pt NPO until further notice.
--- NOTE | 2020-04-09 14:38 | NUR ---
Paged Dr. Masters PAGER ID: [phone] MESSAGE: Re:Alexis Reeder RM [id number]. Patient back in room, GI Lab complete, May pt eat, what diet? Please Advise Dina [phone]
--- NOTE | 2020-04-09 18:20 | NUR ---
Patient in room PCU 3013. I have received report from Nelly ESTRELLA and had the opportunity to ask questions and assume patient care.
--- NOTE | 2020-04-09 18:26 | NUR ---
Gave report to Raisa ESTRELLA.
[2020-04-09] MEDS ORDERED: LIDOcaine 5% patch TP ONE (18:40)
[2020-04-09] MEDS: temazepam 15mg capsule PO PRN (22:29)
[2020-04-10] MEDS: pantoprazole 40MG/NS 100ML BAG 100 ML IV SCH ×6 (00:17→20:55)
[2020-04-10 02:00] VITALS: BP 128/55
[2020-04-10] MEDS: normal saline 1000ml 1,000 ML IV SCH ×2 (05:06→19:18)
--- NOTE | 2020-04-10 06:15 | NUR ---
Problems reprioritized. Patient report given, questions answered & plan of care reviewed with Hetal ESTRELLA.
[2020-04-10 06:31] LABS: HEMATOCRIT 27.2 % (35.0-45.0); HEMOGLOBIN 9.1 g/dl (12.0-16.0); MEAN CORPUSCULAR HGB CONC 33.5 g/dL (33.0-36.5); MEAN CORPUSCULAR VOLUME 89.5 FL (78-98); MEAN PLATELET VOLUME 8.1 FL (7.4-10.4); PLATELET COUNT 211 X10'3 (140-440); RED BLOOD COUNT 3.04 X10'6 (4.20-5.60); RED CELL DISTRIBUTION WIDTH 13.3 % (11.5-14.5); WHITE BLOOD COUNT 4.6 X10'3 (4.5-11.0)
[2020-04-10 06:47] LABS: ALBUMIN 3.2 G/DL (3.4-5.0); ANION GAP 9 (8-16); BLOOD UREA NITROGEN 8 MG/DL (7-18); BUN/CREATININE RATIO 11.4 (6.6-38.0); CALCIUM 8.5 MG/DL (8.5-10.1); CHLORIDE 111 MMOL/L (99-107); GLUCOSE 89 MG/DL (70-104); MAGNESIUM 2.3 MG/DL (1.5-2.4); POTASSIUM 3.8 MMOL/L (3.5-5.1); SODIUM 144 MMOL/L (135-145); TOTAL CARBON DIOXIDE 24.5 MMOL/L (24-32); eGFR 79 ML/MIN
[2020-04-10 07:00] VITALS: BP 129/54
[2020-04-10] MEDS: gabapentin 100mg capsule PO SCH ×2 (07:47→19:18)
[2020-04-10] MEDS: amLODIPine 5mg tablet PO SCH (07:49)
[2020-04-10] MEDS: LIDOcaine 5% patch TP SCH (07:50)
[2020-04-10] MEDS: K and/or MAG REPLACEMENT MC SCH ×2 (07:52→19:22)
[2020-04-10] MEDS ORDERED: iohexol 350MG/ML 100ml bottle IV ONE (10:39)
--- NOTE | 2020-04-10 10:45 | NUR ---
Patient left for CT.
[2020-04-10 11:00] VITALS: BP 121/61
--- NOTE | 2020-04-10 11:00 | NUR ---
Patient back from CT
--- NOTE | 2020-04-10 11:48 | NUR ---
Paged Dr. Malone regarding CTA results being back. PAGER ID: [phone] MESSAGE: [phone]. Alexis Doty. CTA results back. Thank you. Britt ESTRELLA x [phone]
--- NOTE | 2020-04-10 12:40 | NUR ---
Order to advance diet to full liquid put in per Dr. Malone.
[2020-04-10 15:00] VITALS: BP 123/62
--- NOTE | 2020-04-10 18:14 | NUR ---
Problems reprioritized. Patient report given, questions answered & plan of care reviewed with SAMEER Sánchez. Patient stable at transfer of care.
[2020-04-10 19:00] VITALS: BP 131/68
[2020-04-10] MEDS ORDERED: LIDOcaine 5% patch TP SCH (20:15)
[2020-04-10] MEDS: temazepam 15mg capsule PO PRN (20:54)
[2020-04-10 22:00] VITALS: BP 122/65
[2020-04-11] MEDS: pantoprazole 40MG/NS 100ML BAG 100 ML IV SCH ×2 (01:39→07:42)
[2020-04-11 02:00] VITALS: BP 124/63
--- NOTE | 2020-04-11 06:20 | NUR ---
Patient in room PCU 3013. I have received report from SAMEER Sánchez and had the opportunity to ask questions and assume patient care.
[2020-04-11 06:30] VITALS: BP 123/59
[2020-04-11 06:36] LABS: HEMATOCRIT 29.1 % (35.0-45.0); HEMOGLOBIN 9.7 g/dl (12.0-16.0); MEAN CORPUSCULAR HEMOGLOBIN 29.6 PG (27.0-31.0); MEAN CORPUSCULAR HGB CONC 33.3 g/dL (33.0-36.5); MEAN CORPUSCULAR VOLUME 88.7 FL (78-98); MEAN PLATELET VOLUME 8.1 FL (7.4-10.4); PLATELET COUNT 230 X10'3 (140-440); RED BLOOD COUNT 3.28 X10'6 (4.20-5.60); RED CELL DISTRIBUTION WIDTH 13.4 % (11.5-14.5); WHITE BLOOD COUNT 5.6 X10'3 (4.5-11.0)
[2020-04-11 06:40] LABS: ALBUMIN 3.4 G/DL (3.4-5.0); ANION GAP 10 (8-16); BLOOD UREA NITROGEN 4 MG/DL (7-18); BUN/CREATININE RATIO 6.1 (6.6-38.0); CALCIUM 8.6 MG/DL (8.5-10.1); CHLORIDE 110 MMOL/L (99-107); CREATININE 0.66 MG/DL (0.40-0.90); GLUCOSE 87 MG/DL (70-104); MAGNESIUM 2.1 MG/DL (1.5-2.4); POTASSIUM 3.1 MMOL/L (3.5-5.1); SODIUM 146 MMOL/L (135-145); TOTAL CARBON DIOXIDE 26.3 MMOL/L (24-32); eGFR 85 ML/MIN
[2020-04-11] MEDS: K and/or MAG REPLACEMENT MC SCH (07:40)
[2020-04-11] MEDS: amLODIPine 5mg tablet PO SCH (07:42)
[2020-04-11] MEDS: gabapentin 100mg capsule PO SCH (07:42)
[2020-04-11] MEDS: HYDROcodone/acetaminophen 10/325mg tab PO PRN (07:51)
[2020-04-11] MEDS: normal saline 1000ml 1,000 ML IV SCH (08:45)
[2020-04-11] MEDS: potassium Cl 20 mEq SR tablet PO PRN (09:02)
[2020-04-11 11:00] VITALS: BP 104/50
[2020-04-11] MEDS ORDERED: potassium Cl 20 mEq SR tablet PO PRN (13:10)
--- NOTE | 2020-04-11 15:00 | NUR ---
DC inst provided to pt. IV DC'd, tip intact. All belongings sent w/pt. WC to front lobby.
--- NOTE | 2020-04-13 10:38 | NUR ---
CASE MANAGEMENT DISCHARGE FOLLOW UP: Spoke with pt via telephone. Pt reports that she is doing fine. Denies bleeding, dizziness, LOC changes. Verbalizes understanding of s/sx requiring further evaluation/emergent assistance. Pt verbalizes understanding of continued and discontinued medication. Pt verbalizes compliance with MD discharge instructions. Pt verbalizes understanding of the importance in making/keeping follow-up appointments, states her son made her a follow up appointment in PCP for 04/19/20. Pt states no further questions/concerns at this time.
== END 2020-04-11 15:00 | disposition home or self-care (01) | DRG 377 ==
LOC: ER 05:55 → ED HOLD 09:15 → PCU 3S 14:48
PROVIDERS: ADMIT Family Medicine; ATTEND Family Medicine
PROC: 30233N1 Transfusion of Nonautologous Red Blood Cells into Peripheral Vein, Percutaneous Approach (ICD-10-PCS; principal; 2020-04-08)
PROC: C713YZZ Planar Nuclear Medicine Imaging of Blood using Other Radionuclide (ICD-10-PCS; 2020-04-08)
PROC: 0DJD8ZZ Inspection of Lower Intestinal Tract, Via Natural or Artificial Opening Endoscopic (ICD-10-PCS; 2020-04-09)
PROC: 0DJ08ZZ Inspection of Upper Intestinal Tract, Via Natural or Artificial Opening Endoscopic (ICD-10-PCS; 2020-04-09)
PROC: B4201ZZ Computerized Tomography (CT Scan) of Abdominal Aorta using Low Osmolar Contrast (ICD-10-PCS; 2020-04-10)
PROC: B4241ZZ Computerized Tomography (CT Scan) of Superior Mesenteric Artery using Low Osmolar Contrast (ICD-10-PCS; 2020-04-10)
PROC: B4281ZZ Computerized Tomography (CT Scan) of Bilateral Renal Arteries using Low Osmolar Contrast (ICD-10-PCS; 2020-04-10)
PROC: B4211ZZ Computerized Tomography (CT Scan) of Celiac Artery using Low Osmolar Contrast (ICD-10-PCS; 2020-04-10)
DX: K57.31 Diverticulosis of large intestine without perforation or abscess with bleeding (principal); N17.0 Acute kidney failure with tubular necrosis; E87.0 Hyperosmolality and hypernatremia; D62 Acute posthemorrhagic anemia; I12.9 Hypertensive chronic kidney disease with stage 1 through stage 4 chronic kidney disease, or unspecified chronic kidney disease; E78.00 Pure hypercholesterolemia, unspecified; K20.90 Esophagitis, unspecified without bleeding; E78.5 Hyperlipidemia, unspecified; K44.9 Diaphragmatic hernia without obstruction or gangrene; E87.6 Hypokalemia; F03.90 Unspecified dementia, unspecified severity, without behavioral disturbance, psychotic disturbance, mood disturbance, and anxiety; M81.0 Age-related osteoporosis without current pathological fracture; K64.8 Other hemorrhoids; G89.29 Other chronic pain; N18.9 Chronic kidney disease, unspecified; Z87.11 Personal history of peptic ulcer disease; Z87.891 Personal history of nicotine dependence; Z88.0 Allergy status to penicillin; Z88.5 Allergy status to narcotic agent; Z88.8 Allergy status to other drugs, medicaments and biological substances
CPT/HCPCS: 36415; 36430; 43235; 45378; 71045; 74174; 74176; 78278; 80048; 80053; 81001; 82272; 83735; 85025; 85027; 85610; 85730; 86885; 86900; 86901; 86920; 87081; 93005; 97110; 97161; 97530; 99152; 99153; 99285; A4620; A9560; C9113; G0378; J2250; J3010; J7030; J7040; P9016; Q9967